=== PATIENT | male | born 1995 | race Caucasian/White ===

== ENCOUNTER 2017-04-19 22:08 | Emergency (ER) | payer BC, MEDICAID ==
[2017-04-19 22:15] VITALS: BP 139/83
--- NOTE | 2017-04-19 22:37 | ED Physician Documentation ---
PD HPI UPPER EXT INJURY - Stated complaint Stated Complaint: L HAND PX - Chief complaint Chief Complaint: Ext Problem - History obtained from History obtained from: Patient, Family - History of Present Illness Location: Left, Hand Where injury occurred: Home, Work Timing - onset: How many days ago (4) Timing - details: Gradual onset, Still present Associated symptoms: Discolored. No: Weakness, Numbness Contributing factors: No: Anticoagulated Similar symptoms before: No diagnosis Recently seen: Not recently seen - Additonal information Additional information: Patient is a 21 year old male with no significant past medical history who is presenting to the emergency department for hand redness. patient works at the [employer] and does wear gloves most of the time. Patient has had increased redness with his palms, worse on the left. patient states that they used to be cracked but they are getting better. patient denies any trauma or pain. Review of Systems Constitutional: denies: Fever, Chills, Myalgias Eyes: denies: Decreased vision Ears: denies: Ear pain, Drainage/discharge Nose: reports: Reviewed and negative Throat: reports: Reviewed and negative Cardiac: denies: Chest pain / pressure Respiratory: denies: Cough, Wheezing GI: reports: Reviewed and negative : reports: Reviewed and negative Skin: reports: Rash Musculoskeletal: reports: Extremity pain, Extremity swelling Neurologic: denies: Generalized weakness, Focal weakness, Numbness Immunocompromised: denies: Immunocompromised PD PAST MEDICAL HISTORY - Past Medical History Past Medical History: No - Past Surgical History Past Surgical History: Yes HEENT: Tonsil/Adenoidectomy - Present Medications Home Medications: Ambulatory Orders Medication Instructions Recorded Confirmed Hydrocortisone/Iodoquinol 1 applic TP TID #28.4 cream..g. 04/19/17 [Hydrocortisone-Iodoquinol Crm] - Allergies Allergies/Adverse Reactions: Allergies Allergy/AdvReac Type Severity Reaction Status Date / Time No Known Drug Allergies Allergy Verified 02/18/13 21:37 - Social History Does the pt smoke?: No Smoking Status: Never smoker Does the pt drink ETOH?: No Does the pt have substance abuse?: No - Immunizations Immunizations are current?: Yes Immunizations: TDAP >10years/unknown PD ED PE NORMAL - General General: Alert and oriented X 3, No acute distress, Well developed/nourished - HEENT HEENT: Atraumatic, PERRL - Cardiac Cardiac: RRR - Respiratory Respiratory: No respiratory distress - Abdomen Abdomen: Non distended - Extremities Extremities: Normal ROM s pain - Neuro Neuro: Alert and oriented X 3, No motor deficit, No sensory deficit PD ED PE EXPANDED - Cardiac Cardiac: Normal pulses - Derm Derm: Rash (erythematous rash on both palms worse on left) - Extremities Extremities: Left hand (erythema) Results - Vitals Vitals: Vital Signs - 24 hr 04/19/17 22:11 Temperature 36.2 C L Heart Rate 85 Respiratory 18 Rate Blood Pressure 139/83 H O2 Saturation 98 Oxygen O2 Source Room air PD MEDICAL DECISION MAKING - ED course Complexity details: reviewed old records, re-evaluated patient, considered differential, d/w patient, d/w family ED course: Patient was seen and examined at bedside. patient was well appearing and in no distress. Patient required no diagnostics at this time. prescriptions were written and patient was stable for discharge with outpatient follow up. Departure - Departure Disposition: 01 Home, Self Care Clinical Impression: Dermatitis Condition: Good Instructions: Dermatitis Atopic Follow-Up: primary, care provider [Other] Prescriptions: Hydrocortisone/Iodoquinol [Hydrocortisone-Iodoquinol Crm] 1 applic TP TID #28.4 cream..g. 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 You should try the steroid cream on a small portion of your hand. If your symptoms improve then you may apply it more liberally. If they don't improve you should try eucerin. You should follow up with your doctor for further care. You may return to the emergency department at any time for new worsening or uncontrollable symptoms.
== END 2017-04-19 22:45 | disposition home or self-care (01) ==
LOC: ED 22:08
DX: L30.9 Dermatitis, unspecified (principal)
CPT/HCPCS: 99283